=== PATIENT | male | born 1950 | race Caucasian/White ===

== ENCOUNTER 2017-05-29 20:59 | Inpatient (IN) | payer OTHER ==
[~2017-05-29] VITALS: Ht 167.6 cm; Wt 68.0 kg
[2017-05-29 23:49] LABS: BASOPHIL % 0.7 % (0-2); PLATELET COUNT 171 x10^3mcL (130-400); RED CELL DISTRIBUTION WIDTH 15.6 % (11.5-14.5)
[2017-05-30] VITALS (8 sets, daily range): BP systolic 99–144; BP diastolic 52–77
[2017-05-30 00:01] LABS: ALBUMIN 3.7 g/dL (3.4-5.0); BILIRUBIN TOTAL 0.2 mg/dL (0.20-1.00); CALCIUM 7.2 mg/dL (8.5-10.1); CARBON DIOXIDE 14.3 mmol/L (21-32); POTASSIUM SERUM 4.7 mmol/L (3.5-5.1); TOTAL PROTEIN, SERUM 7.2 g/dL (6.4-8.2); URIC ACID 8.4 mg/dL (3.5-7.2)
[2017-05-30 00:20] LABS: CREATININE SERUM 10.2 mg/dL (0.7-1.3)
[2017-05-30] MEDS ORDERED: ZANTAC 300300 MG PO (01:27)
[2017-05-30] MEDS ORDERED: BENTYL10 MG PO (01:27)
[2017-05-30] MEDS ORDERED: OSTERA TABLET1 EACH PO (01:28)
[2017-05-30] MEDS ORDERED: FUROSEMIDE40 MG PO (01:28)
[2017-05-30] MEDS ORDERED: METFORMIN HCL500 MG PO (01:29)
[2017-05-30 04:04] LABS: MAGNESIUM 1.8 mg/dL (1.8-2.4)
[2017-05-30 04:12] LABS: T3 TOTAL 0.55 ng/mL
[2017-05-30 04:19] LABS: FREE T4 0.71 ng/dL (0.76-1.46)
[2017-05-30 04:40] LABS: microscopic required? YES; urine erythrocyte 1+ (NEGATIVE)
[2017-05-30 04:51] LABS: FREE THYROXINE INDEX 1.2 ug/dL (1.4-4.5); T4(THYROXINE) 3.3 ug/dL (4.7-13.3)
[2017-05-30 12:24] LABS: CARBON DIOXIDE 10.9 mmol/L (21-32)
[2017-05-30 12:25] LABS: AMPHETAMINE QUAL UR NONE DETECTED (NEG <=1000)
[2017-05-30 12:28] LABS: CREATININE SERUM 9.7 mg/dL (0.7-1.3)
[2017-05-31] VITALS (9 sets, daily range): BP systolic 77–132; BP diastolic 43–73
[2017-05-31 07:00] LABS: BASOPHIL % 0.6 % (0-2); PLATELET COUNT 160 x10^3mcL (130-400)
[2017-05-31 07:09] LABS: CARBON DIOXIDE 26.1 mmol/L (21-32); RED CELL DISTRIBUTION WIDTH 14.8 % (11.5-14.5)
[2017-05-31 07:19] LABS: MAGNESIUM 1.3 mg/dL (1.8-2.4); PHOSPHOROUS 5.4 mg/dL (2.5-4.9)
[2017-05-31 07:30] LABS: POTASSIUM SERUM 2.9 mmol/L (3.5-5.1)
[2017-05-31 07:31] LABS: CREATININE SERUM 4.6 mg/dL (0.7-1.3)
[2017-06-01 05:10] VITALS: BP 134/80
[2017-06-01 05:48] LABS: BASOPHIL % 0.5 % (0-2); PLATELET COUNT 130 x10^3mcL (130-400)
[2017-06-01 05:49] LABS: RED CELL DISTRIBUTION WIDTH 15.2 % (11.5-14.5)
[2017-06-01 06:03] LABS: CARBON DIOXIDE 30.3 mmol/L (21-32); CREATININE SERUM 3.4 mg/dL (0.7-1.3); PHOSPHOROUS 3.2 mg/dL (2.5-4.9); POTASSIUM SERUM 3.6 mmol/L (3.5-5.1)
[2017-06-01 09:45] VITALS: BP 146/80
[2017-06-01 11:29] VITALS: BP 147/81
[2017-06-01 13:16] VITALS: Ht 167.6 cm; Wt 68.0 kg
[2017-06-01 13:54] VITALS: BP 158/89
[2017-06-01 17:42] VITALS: BP 142/85
[2017-06-01 21:51] VITALS: BP 138/73
[2017-06-02 06:02] VITALS: BP 136/71
[2017-06-02 06:32] LABS: CARBON DIOXIDE 28.9 mmol/L (21-32); POTASSIUM SERUM 3.8 mmol/L (3.5-5.1)
[2017-06-02 06:33] LABS: IRON 22 ug/dL (65-170); TOTAL IRON BINDING CAPACITY 164 ug/dL (250-450)
[2017-06-02 06:36] LABS: CREATININE SERUM 4.6 mg/dL (0.7-1.3)
[2017-06-02 06:49] LABS: BASOPHIL % 0.5 % (0-2)
[2017-06-02 07:12] LABS: PLATELET COUNT 121 x10^3mcL (130-400); RED CELL DISTRIBUTION WIDTH 15.4 % (11.5-14.5)
[2017-06-02 08:30] VITALS: BP 106/62
[2017-06-02 12:08] VITALS: BP 116/74
[2017-06-02 17:25] VITALS: BP 101/47
[2017-06-02 17:45] VITALS: BP 103/56
[2017-06-02 21:30] VITALS: BP 135/69
[2017-06-03 05:29] VITALS: BP 100/55
[2017-06-03 06:23] LABS: CALCIUM 7.7 mg/dL (8.5-10.1); CARBON DIOXIDE 30.5 mmol/L (21-32); CREATININE SERUM 3.5 mg/dL (0.7-1.3); POTASSIUM SERUM 4.2 mmol/L (3.5-5.1)
[2017-06-03 06:51] LABS: BASOPHIL % 0.5 % (0-2); RED CELL DISTRIBUTION WIDTH 15.6 % (11.5-14.5)
[2017-06-03 06:52] LABS: PLATELET COUNT 96 x10^3mcL (130-400)
[2017-06-03 10:36] VITALS: BP 109/57
[2017-06-03 14:32] VITALS: BP 135/69
[2017-06-03] MEDS ORDERED: LIPI10 PO (16:36)
[2017-06-03] MEDS ORDERED: ECO81 PO (16:38)
[2017-06-03] MEDS ORDERED: CAR60 PO (16:38)
[2017-06-03] MEDS ORDERED: BG FS (16:39)
[2017-06-03] MEDS ORDERED: GLU5 PO (16:39)
[2017-06-03] MEDS ORDERED: NATURAL IRON65 MG PO (16:45)
[2017-06-03 17:05] LABS: RED BLOOD CELLS 3.1 M/mm3 (4.52-5.90)
[2017-06-03 17:39] VITALS: BP 124/62
[2017-06-03 17:39] LABS: IRON 58 ug/dL (65-170)
[2017-06-03 17:41] LABS: TOTAL IRON BINDING CAPACITY 149 ug/dL (250-450)
[2017-06-03 18:16] VITALS: BP 124/62
== END 2017-06-03 20:01 | disposition home or self-care (01) | DRG 699 ==
LOC: ED 20:59 → DU 05-30 01:05
PROVIDERS: Emergency Medicine; Internal Medicine; Surgery; ADMIT Family Medicine
PROC: 05HM33Z Insertion of Infusion Device into Right Internal Jugular Vein, Percutaneous Approach (ICD-10-PCS; 2017-05-30)
PROC: B543ZZA Ultrasonography of Right Jugular Veins, Guidance (ICD-10-PCS; 2017-05-30)
PROC: 0DB68ZX Excision of Stomach, Via Natural or Artificial Opening Endoscopic, Diagnostic (ICD-10-PCS; 2017-05-31)
PROC: B5131ZA Fluoroscopy of Right Jugular Veins using Low Osmolar Contrast, Guidance (ICD-10-PCS; 2017-06-01)
PROC: 05HM33Z Insertion of Infusion Device into Right Internal Jugular Vein, Percutaneous Approach (ICD-10-PCS; principal; 2017-06-01 10:45)
DX: E11.22 Type 2 diabetes mellitus with diabetic chronic kidney disease (principal); E87.2 Acidosis; K22.10 Ulcer of esophagus without bleeding; N18.6 End stage renal disease; N17.0 Acute kidney failure with tubular necrosis; E11.65 Type 2 diabetes mellitus with hyperglycemia; E11.51 Type 2 diabetes mellitus with diabetic peripheral angiopathy without gangrene; K29.70 Gastritis, unspecified, without bleeding; I48.91 Unspecified atrial fibrillation; E87.6 Hypokalemia; D63.1 Anemia in chronic kidney disease; E73.9 Lactose intolerance, unspecified; E03.9 Hypothyroidism, unspecified; Z79.84 Long term (current) use of oral hypoglycemic drugs; Z89.421 Acquired absence of other right toe(s); Z68.24 Body mass index [BMI] 24.0-24.9, adult
CPT/HCPCS: 36600; 43239; 82962; 83880; 84439; 86580; A4301; C9113; G0480; J0690; J1170; J1200; J1610; J1642; J1644; J2001; J2250; J2310; J2405; J2704; J2916; J3010; J3475; J3490; J7030; J7040; J8597; Q0092